=== PATIENT | female | born 1935 | race Caucasian/White ===

== ENCOUNTER 2018-02-28 21:53 | Observation (INO) | payer MEDICARE, OTHER ==
[2018-02-28 22:55] LABS: BASO % 0.4 % (0.0-2.0); EOS # 0.1 K/uL (0.0-0.7); EOS % 1.1 % (0.0-4.0); HEMOGLOBIN 13.8 g/dL (12.0-16.0); LYMPH # 1.9 K/uL (1.0-4.3); LYMPH % 25.5 % (20.0-40.0); MEAN CELL VOLUME 87.4 fl (81.0-99.0); MEAN CORPUSCULAR HEMOGLOBIN 29.9 pg (27.0-31.0); MEAN CORPUSCULAR HGB CONC 34.2 g/dL (33.0-37.0); MEAN PLATELET VOLUME 9.6 fl (7.2-11.7); MONO # 0.9 K/uL (0.0-0.8); MONO % 12.5 % (0.0-10.0); NEUT # 4.4 K/uL (1.8-7.0); NEUT % 60.5 % (50.0-75.0); NRBC % 0.1 % (0.0-0.0); RBC 4.64 Mil/uL (3.80-5.20); RED CELL DISTRIBUTION WIDTH 13.2 % (11.5-14.5); WHITE BLOOD COUNT 7.3 K/uL (4.8-10.8)
[2018-02-28 23:15] LABS: PROTHROMBIN TIME 9.5 Seconds (9.8-13.1)
[2018-02-28 23:16] LABS: INR 0.9 (0.9-1.2); PARTIAL THROMBOPLASTIN TIME 31.5 Seconds (25.6-37.1)
[2018-02-28 23:18] LABS: BLOOD UREA NITROGEN 20 mg/dl (7-17); CALCIUM 9.3 mg/dL (8.4-10.2); GFR AFRICAN-AMERICAN > 60; GFR NON-AFRICAN AMERICAN > 60; LIPASE 162 U/L (23-300)
[2018-02-28 23:33] LABS: B-TYPE NATRIURETIC PEPTIDE 122 pg/ml (0-900)
--- NOTE | 2018-03-01 00:07 | ED PDOC ---
HPI: Chest Pain Time Seen by Provider: 02/28/18 22:17 Chief Complaint (Nursing): Chest Pain Chief Complaint (Provider): Sternal chest pain, nausea, dizziness History Per: Patient History/Exam Limitations: no limitations Onset/Duration Of Symptoms: Days Current Symptoms Are (Timing): Still Present Additional Complaint(s): 82 yo female with HTN, CAD and high cholesterol presents with chest pain since yesterday. Pt reports pain as pressure. Pt also reports nausea the last 2 days and not feeling well. Pt has been dizzy for the last week which was worse today. Pt is having difficulty walking due to imbalance. No fever/chills. Pt denies SOB. Past Medical History Reviewed: Historical Data, Nursing Documentation, Vital Signs Vital Signs: Last Vital Signs Temp 97.8 F 02/28/18 23:34 Pulse 65 03/01/18 01:16 Resp 19 02/28/18 23:34 BP 159/77 H 03/01/18 01:16 Pulse Ox 99 03/01/18 00:23 - Medical History PMH: CHF (questionable, patient is unsure but provides that she is taking Furosemide), HTN, Hyperlipidemia Other PMH: Stents placed 1 year ago in [place] - Surgical History Surgical History: Appendectomy, Cholecystectomy - Family History Family History: States: Unknown Family Hx - Living Arrangements Living Arrangements: With Family - Social History Current smoker - smoking cessation education provided: No Alcohol: None Drugs: Denies - Home Medications Home Medications: Ambulatory Orders Medication Instructions Recorded Raloxifene [Evista] 60 mg PO DAILY 11/21/15 Aspirin [[place] Aspirin] 81 mg PO DAILY 03/01/18 Furosemide [Lasix] 40 mg PO DAILY 03/01/18 Losartan Potassium [Losartan 50 mg PO DAILY 03/01/18 Potassium] Metoprolol Tartrate [Lopressor] 50 mg PO BID 03/01/18 Patient Own Control [Patient Own 1 tab PO DAILY 03/01/18 Control] Pregabalin [Lyrica] 150 mg PO BID 03/01/18 Rosuvastatin Calcium [Crestor] 10 mg PO DAILY 03/01/18 - Allergies Allergies/Adverse Reactions: Allergies Allergy/AdvReac Type Severity Reaction Status Date / Time No Known Allergies Allergy Verified 11/21/15 10:34 Review of Systems ROS Statement: Except As Marked, All Systems Reviewed And Found Negative Constitutional: Negative for: Fever, Chills Cardiovascular: Positive for: Chest Pain (Pressure ) Respiratory: Negative for: Cough, Shortness of Breath Gastrointestinal: Positive for: Nausea Neurological: Positive for: Dizziness Physical Exam - Reviewed Nursing Documentation Reviewed: Yes Vital Signs Reviewed: Yes - Physical Exam Appears: Positive for: Well, Non-toxic, No Acute Distress Head Exam: Positive for: ATRAUMATIC, NORMAL INSPECTION, NORMOCEPHALIC Skin: Positive for: Normal Color, Warm, DRY Eye Exam: Positive for: Normal appearance ENT: Positive for: Normal ENT Inspection Neck: Positive for: Normal, Painless ROM Cardiovascular/Chest: Positive for: Regular Rate, Rhythm Respiratory: Positive for: Normal Breath Sounds. Negative for: Accessory Muscle Use, Respiratory Distress Gastrointestinal/Abdominal: Positive for: Normal Exam, Soft. Negative for: Tenderness Back: Positive for: Normal Inspection Extremity: Positive for: Normal ROM. Negative for: Swelling Neurologic/Psych: Positive for: Alert, Oriented - Laboratory Results Result Diagrams: 02/28/18 22:51 02/28/18 22:51 - ECG O2 Sat by Pulse Oximetry: 99 Medical Decision Making Medical Decision Making: Blood cultures drawn and patient given PO diflucan and IV rocephin. Cased discussed with Dr. Garcia for admission. Disposition - Clinical Impression Clinical Impression: Chest pain, UTI (urinary tract infection) - Patient ED Disposition Is Patient to be Admitted: No Counseled Patient/Family Regarding: Diagnosis, Need For Followup - Disposition Disposition: Routine/Home Disposition Time: 01:26 Condition: STABLE Forms: Dr. Scribbles (Tajik)
[2018-03-01 00:29] LABS: SQUAMOUS EPITHIAL 3 /hpf (0-5); URINE BACTERIA RARE (<OCC); URINE BILIRUBIN NEGATIVE (NEGATIVE); URINE BLOOD MODERATE (NEGATIVE); URINE CLARITY CLOUDY (Clear); URINE COLOR YELLOW (YELLOW); URINE GLUCOSE (UA) NEG (Normal); URINE LEUKOCYTE ESTERASE SMALL Leu/uL (Negative); URINE PROTEIN 30 mg/dL (NEGATIVE); URINE URIC ACID CRYSTALS OCC /hpf (<OCC); URINE UROBILINOGEN 0.2-1.0 mg/dL (0.2-1.0)
[2018-03-01] MEDS ORDERED: cefTRIAXone (Rocephin) 1 gm Inj ONE (00:45)
[2018-03-01] MEDS ORDERED: Fluconazole 150 MG TAB PO STA (01:24)
--- NOTE | 2018-03-01 01:56 | CP.PCM.HP ---
History of Present Illness - History of Present Illness History of Present Illness: Pulmonogist: Spencer Fabian MD Chief Complaint: Chest Pain/Dizziness The patient was seen and examined in the ED HPI: The hx was obtained from the patient's family and after review of the medical records. She is an 82 years old female with hx of HTN, HLD and CAD who was brought to the ED because of Two days of localized retro sternal chest pain at rest that is associated with nausea, dizziness, unsteady gait and not feeling good. The dizziness became worse today. No diaphoresis, fever nor chills. PMH: HTN; HLD: CAD s/p Stent placed in [place] PSH: Cholecystectomy; Appendectomy SH: No illegal drug use; NO Alcohol; Neve3r Smoked FH: States NO: known family hx Allergies; NKDA Medication: Rreviewed Present on Admission - Present on Admission Any Indicators Present on Admission: No History of DVT/PE: No History of Uncontrolled Diabetes: No Urinary Catheter: No Decubitus Ulcer Present: No Review of Systems - Constitutional Constitutional: Weakness. absent: Chills, Fever - EENT Eyes: Requires Corrective Lenses. absent: Blurred Vision, Diplopia, Floaters Ears: absent: Decreased Hearing, Tinnitus Nose/Mouth/Throat: absent: Epistaxis, Nasal Congestion - Cardiovascular Cardiovascular: Chest Pain, Lightheadedness - Respiratory Respiratory: Dyspnea. absent: Wheezing, Stridor, Chest Congestion - Gastrointestinal Gastrointestinal: Nausea. absent: Constipation, Diarrhea, Vomiting - Musculoskeletal Musculoskeletal: Arthralgias - Integumentary Integumentary: absent: Pruritus, Rash, Skin Ulcer, Sores, Striae, Swelling - Neurological Neurological: Confusion, Disequilibrium, Dizziness, Weakness - Psychiatric Psychiatric: absent: Anxiety, Depression, Panic Attacks - Endocrine Endocrine: absent: Palpitations, Polydipsia, Polyphagia, Polyuria - Hematologic/Lymphatic Hematologic: absent: Easy Bleeding, Easy Bruising Past Patient History - Infectious Disease Hx of Infectious Diseases: None - Past Medical History & Family History Past Medical History?: Yes - Past Social History Smoking Status: Never Smoked Chewing Tobacco Use: No Cigar Use: No Alcohol: None Drugs: Denies Home Situation {Lives}: With Family - CARDIAC Hx Congestive Heart Failure: Yes (questionable, patient is unsure but provides that she is taking Furosemide) Hx Hypercholesterolemia: Yes Hx Hypertension: Yes - PULMONARY Hx Respiratory Disorders: No - NEUROLOGICAL Hx Neurological Disorder: No - HEENT Hx HEENT Problems: No - RENAL Hx Chronic Kidney Disease: No - ENDOCRINE/METABOLIC Hx Endocrine Disorders: No - HEMATOLOGICAL/ONCOLOGICAL Hx Blood Disorders: No - INTEGUMENTARY Hx Dermatological Problems: No - MUSCULOSKELETAL/RHEUMATOLOGICAL Hx Musculoskeletal Disorders: No - GASTROINTESTINAL Hx Gastrointestinal Disorders: No - GENITOURINARY/GYNECOLOGICAL Hx Genitourinary Disorders: No - PSYCHIATRIC Hx Psychophysiologic Disorder: No Hx Substance Use: No - SURGICAL HISTORY Hx Appendectomy: Yes Hx Cholecystectomy: Yes - ANESTHESIA Hx Anesthesia: Yes Hx Anesthesia Reactions: No Hx Malignant Hyperthermia: No Meds Allergies/Adverse Reactions: Allergies Allergy/AdvReac Type Severity Reaction Status Date / Time No Known Allergies Allergy Verified 11/21/15 10:34 Physical Exam - Constitutional Appears: No Acute Distress - Head Exam Head Exam: ATRAUMATIC, NORMAL INSPECTION, NORMOCEPHALIC - Eye Exam Eye Exam: EOMI, Normal appearance Pupil Exam: NORMAL ACCOMODATION, PERRL - ENT Exam ENT Exam: Mucous Membranes Moist, Normal Exam, Normal External Ear Exam - Neck Exam Neck exam: Positive for: Full Rom, Normal Inspection. Negative for: Lymphadenopathy, Tenderness - Respiratory Exam Respiratory Exam: Clear to Auscultation Bilateral. absent: Rales, Rhonchi, Wheezes - Cardiovascular Exam Cardiovascular Exam: REGULAR RHYTHM, RRR, +S1, +S2. absent: Gallop, JVD - GI/Abdominal Exam GI & Abdominal Exam: Normal Bowel Sounds, Soft. absent: Mass, Organomegaly, Tenderness - Rectal Exam Rectal Exam: Deferred - Extremities Exam Extremities exam: Positive for: full ROM, normal inspection. Negative for: joint swelling, pedal edema - Back Exam Back exam: NORMAL INSPECTION. absent: CVA tenderness (L), CVA tenderness (R) - Neurological Exam Neurological exam: Alert, CN II-XII Intact, Oriented x3, Reflexes Normal - Psychiatric Exam Psychiatric exam: Normal Affect, Normal Mood - Skin Skin Exam: Dry, Intact, Normal Color, Warm Results - Vital Signs Recent Vital Signs: Last Vital Signs Temp 97.8 F 02/28/18 23:34 Pulse 65 03/01/18 01:16 Resp 19 02/28/18 23:34 BP 159/77 H 03/01/18 01:16 Pulse Ox 99 03/01/18 01:26 - Labs Result Diagrams: 02/28/18 22:51 02/28/18 22:51 Labs: Laboratory Results - last 24 hr 02/28/18 02/28/18 02/28/18 22:51 22:51 22:51 WBC 7.3 RBC 4.64 Hgb 13.8 Hct 40.5 MCV 87.4 MCH 29.9 MCHC 34.2 RDW 13.2 Plt Count 195 MPV 9.6 Neut % (Auto) 60.5 Lymph % (Auto) 25.5 [place] % (Auto) 12.5 H Eos % (Auto) 1.1 Baso % (Auto) 0.4 Neut # (Auto) 4.4 Lymph # (Auto) 1.9 [place] # (Auto) 0.9 H Eos # (Auto) 0.1 Baso # (Auto) 0.0 PT 9.5 L INR 0.9 APTT 31.5 Sodium 143 Potassium 3.3 L Chloride 104 Carbon Dioxide 26 Anion Gap 16 BUN 20 H Creatinine 0.7 Est GFR ( Amer) > 60 Est GFR (Non-Af Amer) > 60 POC Glucose (mg/dL) Random Glucose 130 H Lactic Acid Calcium 9.3 Troponin I < 0.0120 NT-Pro-B Natriuret Pep 122 Lipase 162 Urine Color Urine Clarity Urine pH Ur Specific [place] Urine Protein Urine Glucose (UA) Urine Ketones Urine Blood Urine Nitrate Urine Bilirubin Urine Urobilinogen Ur Leukocyte Esterase Urine RBC (Auto) Urine Microscopic WBC Ur Squamous Epith Cells Uric Acid Crystals Urine Bacteria Urine Yeast (Budding) 02/28/18 03/01/18 03/01/18 23:08 00:04 00:27 WBC RBC Hgb Hct MCV MCH MCHC RDW Plt Count MPV Neut % (Auto) Lymph % (Auto) [place] % (Auto) Eos % (Auto) Baso % (Auto) Neut # (Auto) Lymph # (Auto) [place] # (Auto) Eos # (Auto) Baso # (Auto) PT INR APTT Sodium Potassium Chloride Carbon Dioxide Anion Gap BUN Creatinine Est GFR ( Amer) Est GFR (Non-Af Amer) POC Glucose (mg/dL) 100 Random Glucose Lactic Acid 2.1 Calcium Troponin I NT-Pro-B Natriuret Pep Lipase Urine Color Yellow Urine Clarity Cloudy Urine pH 5.0 Ur Specific [place] 1.021 Urine Protein 30 Urine Glucose (UA) Neg Urine Ketones Negative Urine Blood Moderate Urine Nitrate Positive H Urine Bilirubin Negative Urine Urobilinogen 0.2-1.0 Ur Leukocyte Esterase Small Urine RBC (Auto) 194 H Urine Microscopic WBC 42 H Ur Squamous Epith Cells 3 Uric Acid Crystals Occ H Urine Bacteria Rare Urine Yeast (Budding) Mod H - EKG Data EKG comments: NSR 69/min with First Degree AV block which was present since 04/2016 - Imaging and Cardiology CT scan - head Status: Image reviewed by me, Report reviewed by me Additional comment: EXAM: CT Head Without Intravenous Contrast FINDINGS: Brain: Atrophy. Mild periventricular white matter hypoattenuation most consistent with chronic ischemic small vessel changes. Vascular calcification. No hemorrhage. No edema. Ventricles: No hydrocephalus. Bones/joints: Skull is intact. Soft tissues: No acute abnormality as visualized. Sinuses: Mild paranasal sinus mucosal thickening, most notable in the right sphenoid sinus. Mastoid air cells: No mastoid effusion. IMPRESSION: No CT evidence of acute intracranial abnormality. Chest x-ray Status: Image reviewed by me Additional comment: Increased bronchovascular markings Assessment & Plan - Assessment and Plan (Free Text) Assessment: #. Chest pain #. UTI #. Fungemia #. HTN #. Hypokalemia Plan: 82 years old female with hx of HTN, HLD and CAD who was brought to the ED because of Two days of localized retro sternal chest pain at rest that is associated with nausea, dizziness, unsteady gait and not feeling good. The dizziness became worse today. No diaphoresis, fever nor chills. #. Chest pain probably musculo skeletal, r/o ACS - Consult Dr sarah cardiology - serial EKG - Serial Troponin - crestor/ASA #. UTI - Follow Urine Culture - Follow blood culture - Ceftriaxone #. Fungemia - Fluconazole #. HTN - Metoprolol - Losartan #. Hypokalemia - replaced with Potassium chloride - Follow electrolytes #. DVT prophylaxis with Lovenox #. Code Status: Full - Date & Time Date: 03/01/18 Time: 01:55
[2018-03-01 03:07] VITALS: RESP 18
[2018-03-01] MEDS ORDERED: Potassium Chloride 20 mEq ER Tab PO ONE (03:39)
[2018-03-01 07:30] LABS: BLOOD UREA NITROGEN 18 mg/dl (7-17); CALCIUM 9.3 mg/dL (8.4-10.2); GFR AFRICAN-AMERICAN > 60; GFR NON-AFRICAN AMERICAN > 60
[2018-03-01] MEDS ORDERED: Enoxaparin 40 mg Syringe SC SCH (09:00)
--- NOTE | 2018-03-01 09:07 | RAD ---
HISTORY: Chest pressure COMPARISON: Chest radiograph dated 03/13/2017. FINDINGS: LUNGS: Chronic prominence of the bilateral interstitial markings. No focal consolidation. PLEURA: Elevation of the right hemidiaphragm. No significant pleural effusion identified, no pneumothorax apparent. CARDIOVASCULAR: Atherosclerotic aortic calcifications. Cardiomediastinal silhouette stably prominent. OSSEOUS STRUCTURES: Old left-sided rib fractures redemonstrated. Unchanged. VISUALIZED UPPER ABDOMEN: Normal. OTHER FINDINGS: None. IMPRESSION: No active disease.
--- NOTE | 2018-03-01 09:26 | CT ---
PROCEDURE: CT HEAD WITHOUT CONTRAST. HISTORY: dizziness, nuasea COMPARISON: CT head dated 07/15/2010. TECHNIQUE: Axial computed tomography images were obtained through the head/brain without intravenous contrast. Radiation dose: Total exam DLP = 805 mGy-cm. This CT exam was performed using one or more of the following dose reduction techniques: Automated exposure control, adjustment of the mA and/or kV according to patient size, and/or use of iterative reconstruction technique. FINDINGS: HEMORRHAGE: No intracranial hemorrhage. BRAIN: No mass effect or edema. Atrophy. Chronic microvascular ischemic changes. 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 VENTRICLES: Unremarkable. No hydrocephalus. CALVARIUM: Unremarkable. PARANASAL SINUSES: Trace right sphenoid and bilateral maxillary sinus mucosal thickening. MASTOID AIR CELLS: Unremarkable as visualized. No inflammatory changes. OTHER FINDINGS: None. IMPRESSION: No acute intracranial pathology. Trace sinus disease.
[2018-03-01 11:56] VITALS: BP 147/75; PULSE 59; TEMP 97.8; O2SAT 95
--- NOTE | 2018-03-01 12:10 | CP.PCM.CON ---
History of Present Illness - History of Present Illness History of Present Illness: 82 years old female with hx of HTN, HLD and CAD who was brought to the ED because of Two days Hx of dizziness / no relation to exertion worse with head movement Pt is well known to me the dizziness is a chronic problem that goes back years PMH: HTN; HLD: CAD s/p Stent placed in [place] PSH: Cholecystectomy; Appendectomy EKG: NSR Troponin: neg Past Patient History - Infectious Disease Hx of Infectious Diseases: None - Past Medical History & Family History Past Medical History?: Yes - Past Social History Smoking Status: Never Smoked Chewing Tobacco Use: No Cigar Use: No Alcohol: None Drugs: Denies Home Situation {Lives}: With Family - CARDIAC Hx Congestive Heart Failure: Yes (questionable, patient is unsure but provides that she is taking Furosemide) Hx Hypercholesterolemia: Yes Hx Hypertension: Yes - PULMONARY Hx Respiratory Disorders: No - NEUROLOGICAL Hx Neurological Disorder: No Hx Dizziness: Yes - HEENT Hx HEENT Problems: No - RENAL Hx Chronic Kidney Disease: No - ENDOCRINE/METABOLIC Hx Endocrine Disorders: No - HEMATOLOGICAL/ONCOLOGICAL Hx Blood Disorders: No - INTEGUMENTARY Hx Dermatological Problems: No - MUSCULOSKELETAL/RHEUMATOLOGICAL Hx Musculoskeletal Disorders: No - GASTROINTESTINAL Hx Gastrointestinal Disorders: No - GENITOURINARY/GYNECOLOGICAL Hx Genitourinary Disorders: No - PSYCHIATRIC Hx Psychophysiologic Disorder: No Hx Substance Use: No - SURGICAL HISTORY Hx Appendectomy: Yes Hx Cholecystectomy: Yes - ANESTHESIA Hx Anesthesia: Yes Hx Anesthesia Reactions: No Hx Malignant Hyperthermia: No Meds Home Medications: Home Medication List Medication Instructions Recorded Confirmed Type Ciprofloxacin [Cipro] 500 mg PO DAILY #5 tab 03/01/18 Rx Fluconazole [Diflucan] 100 mg PO DAILY #7 tab 03/01/18 Rx Meclizine [Antivert] 12.5 mg PO Q8 PRN #20 tab 03/01/18 Rx Allergies/Adverse Reactions: Allergies Allergy/AdvReac Type Severity Reaction Status Date / Time No Known Allergies Allergy Verified 11/21/15 10:34 - Medications Medications: Current Medications Aspirin (Aspirin Chewable) 81 mg PO DAILY [facility] Last Admin: 03/01/18 09:52 Dose: 81 mg Atorvastatin Calcium (Lipitor) 20 mg PO DAILY [facility] Last Admin: 03/01/18 09:53 Dose: 20 mg Enoxaparin Sodium (Lovenox) 40 mg SC DAILY [facility] PRN Reason: Protocol Last Admin: 03/01/18 09:54 Dose: 40 mg Fluconazole (Diflucan) 200 mg PO DAILY [facility] PRN Reason: Protocol Last Admin: 03/01/18 09:55 Dose: Not Given Furosemide (Lasix) 40 mg PO DAILY [facility] Last Admin: 03/01/18 09:53 Dose: 40 mg Home Med (Raloxifene [Evista]) 60 mg PO DAILY [facility] Ceftriaxone Sodium 1 gm/ (Sodium Chloride) 100 mls @ 100 mls/hr IVPB DAILY [facility] PRN Reason: Protocol Last Admin: 03/01/18 09:55 Dose: Not Given Losartan Potassium (Cozaar) 50 mg PO DAILY [facility] Last Admin: 03/01/18 09:52 Dose: 50 mg Meclizine HCl (Antivert) 12.5 mg PO BID PRN PRN Reason: Dizziness Metoprolol Tartrate (Lopressor) 50 mg PO BID [facility] Last Admin: 03/01/18 09:53 Dose: 50 mg Pregabalin (Lyrica) 150 mg PO BID [facility] Last Admin: 03/01/18 09:58 Dose: 150 mg Physical Exam - Head Exam Head Exam: ATRAUMATIC - Eye Exam Eye Exam: Normal appearance - ENT Exam ENT Exam: Normal Exam - Neck Exam Neck exam: Positive for: Normal Inspection - Respiratory Exam Respiratory Exam: NORMAL BREATHING PATTERN - Cardiovascular Exam Cardiovascular Exam: REGULAR RHYTHM Results - Vital Signs Recent Vital Signs: Last Vital Signs Temp 97.6 F 03/01/18 08:43 Pulse 72 03/01/18 09:53 Resp 18 03/01/18 08:43 BP 165/91 H 03/01/18 09:53 Pulse Ox 94 L 03/01/18 08:43 - Labs Result Diagrams: 02/28/18 22:51 03/01/18 06:00 Labs: Laboratory Results - last 24 hr 02/28/18 02/28/18 02/28/18 22:51 22:51 22:51 WBC 7.3 RBC 4.64 Hgb 13.8 Hct 40.5 MCV 87.4 MCH 29.9 MCHC 34.2 RDW 13.2 Plt Count 195 MPV 9.6 Neut % (Auto) 60.5 Lymph % (Auto) 25.5 [place] % (Auto) 12.5 H Eos % (Auto) 1.1 Baso % (Auto) 0.4 Neut # (Auto) 4.4 Lymph # (Auto) 1.9 [place] # (Auto) 0.9 H Eos # (Auto) 0.1 Baso # (Auto) 0.0 PT 9.5 L INR 0.9 APTT 31.5 Sodium 143 Potassium 3.3 L Chloride 104 Carbon Dioxide 26 Anion Gap 16 BUN 20 H Creatinine 0.7 Est GFR ( Amer) > 60 Est GFR (Non-Af Amer) > 60 POC Glucose (mg/dL) Random Glucose 130 H Lactic Acid Calcium 9.3 Troponin I < 0.0120 NT-Pro-B Natriuret Pep 122 Lipase 162 Urine Color Urine Clarity Urine pH Ur Specific [place] Urine Protein Urine Glucose (UA) Urine Ketones Urine Blood Urine Nitrate Urine Bilirubin Urine Urobilinogen Ur Leukocyte Esterase Urine RBC (Auto) Urine Microscopic WBC Ur Squamous Epith Cells Uric Acid Crystals Urine Bacteria Urine Yeast (Budding) 02/28/18 03/01/18 03/01/18 23:08 00:04 00:27 WBC RBC Hgb Hct MCV MCH MCHC RDW Plt Count MPV Neut % (Auto) Lymph % (Auto) [place] % (Auto) Eos % (Auto) Baso % (Auto) Neut # (Auto) Lymph # (Auto) [place] # (Auto) Eos # (Auto) Baso # (Auto) PT INR APTT Sodium Potassium Chloride Carbon Dioxide Anion Gap BUN Creatinine Est GFR ( Amer) Est GFR (Non-Af Amer) POC Glucose (mg/dL) 100 Random Glucose Lactic Acid 2.1 Calcium Troponin I NT-Pro-B Natriuret Pep Lipase Urine Color Yellow Urine Clarity Cloudy Urine pH 5.0 Ur Specific [place] 1.021 Urine Protein 30 Urine Glucose (UA) Neg Urine Ketones Negative Urine Blood Moderate Urine Nitrate Positive H Urine Bilirubin Negative Urine Urobilinogen 0.2-1.0 Ur Leukocyte Esterase Small Urine RBC (Auto) 194 H Urine Microscopic WBC 42 H Ur Squamous Epith Cells 3 Uric Acid Crystals Occ H Urine Bacteria Rare Urine Yeast (Budding) Mod H 03/01/18 06:00 WBC RBC Hgb Hct MCV MCH MCHC RDW Plt Count MPV Neut % (Auto) Lymph % (Auto) [place] % (Auto) Eos % (Auto) Baso % (Auto) Neut # (Auto) Lymph # (Auto) [place] # (Auto) Eos # (Auto) Baso # (Auto) PT INR APTT Sodium 143 Potassium 3.6 Chloride 105 Carbon Dioxide 28 Anion Gap 14 BUN 18 H Creatinine 0.6 L Est GFR ( Amer) > 60 Est GFR (Non-Af Amer) > 60 POC Glucose (mg/dL) Random Glucose 96 Lactic Acid Calcium 9.3 Troponin I < 0.0120 NT-Pro-B Natriuret Pep Lipase Urine Color Urine Clarity Urine pH Ur Specific [place] Urine Protein Urine Glucose (UA) Urine Ketones Urine Blood Urine Nitrate Urine Bilirubin Urine Urobilinogen Ur Leukocyte Esterase Urine RBC (Auto) Urine Microscopic WBC Ur Squamous Epith Cells Uric Acid Crystals Urine Bacteria Urine Yeast (Budding) Assessment & Plan (1) Postural dizziness Assessment and Plan: Doubt this is cardiac in origin Status: Acute
--- NOTE | 2018-03-01 12:42 | CP.PCM.DIS ---
Provider - Provider Date of Admission: 03/01/18 01:04 Attending physician: Julio Garcia Primary care physician: Dr Fabian Consults: cardiology consult Time Spent in preparation of Discharge (in minutes): 15 Hospital Course - Lab Results Lab Results: Most Recent Lab Values WBC 7.3 K/uL (4.8-10.8) 02/28/18 22:51 RBC 4.64 Mil/uL (3.80-5.20) 02/28/18 22:51 Hgb 13.8 g/dL (12.0-16.0) 02/28/18 22:51 Hct 40.5 % (34.0-47.0) 02/28/18 22:51 MCV 87.4 fl (81.0-99.0) 02/28/18 22:51 MCH 29.9 pg (27.0-31.0) 02/28/18 22:51 MCHC 34.2 g/dL (33.0-37.0) 02/28/18 22:51 RDW 13.2 % (11.5-14.5) 02/28/18 22:51 Plt Count 195 K/uL (130-400) 02/28/18 22:51 MPV 9.6 fl (7.2-11.7) 02/28/18 22:51 Neut % (Auto) 60.5 % (50.0-75.0) 02/28/18 22:51 Lymph % (Auto) 25.5 % (20.0-40.0) 02/28/18 22:51 [place] % (Auto) 12.5 % (0.0-10.0) H 02/28/18 22:51 Eos % (Auto) 1.1 % (0.0-4.0) 02/28/18 22:51 Baso % (Auto) 0.4 % (0.0-2.0) 02/28/18 22:51 Neut # (Auto) 4.4 K/uL (1.8-7.0) 02/28/18 22:51 Lymph # (Auto) 1.9 K/uL (1.0-4.3) 02/28/18 22:51 Sabine # (Auto) 0.9 K/uL (0.0-0.8) H 06/15/18 22:51 Eos # (Auto) 0.1 K/uL (0.0-0.7) 02/28/18 22:51 Baso # (Auto) 0.0 K/uL (0.0-0.2) 02/28/18 22:51 PT 9.5 Seconds (9.8-13.1) L 02/28/18 22:51 INR 0.9 (0.9-1.2) 02/28/18 22:51 APTT 31.5 Seconds (25.6-37.1) 02/28/18 22:51 Sodium 143 mmol/l (132-148) 03/01/18 06:00 Potassium 3.6 MMOL/L (3.6-5.0) 03/01/18 06:00 Chloride 105 mmol/L (98-107) 03/01/18 06:00 Carbon Dioxide 28 mmol/L (22-30) 03/01/18 06:00 Anion Gap 14 (10-20) 03/01/18 06:00 BUN 18 mg/dl (7-17) H 03/01/18 06:00 Creatinine 0.6 mg/dl (0.7-1.2) L 03/01/18 06:00 Est GFR ( Amer) > 60 03/01/18 06:00 Est GFR (Non-Af Amer) > 60 03/01/18 06:00 POC Glucose (mg/dL) 100 mg/dL (65-110) 03/01/18 00:27 Random Glucose 96 mg/dL (65-105) 03/01/18 06:00 Lactic Acid 2.1 MMOL/L (0.7-2.1) 02/28/18 23:08 Calcium 9.3 mg/dL (8.4-10.2) 03/01/18 06:00 Troponin I < 0.0120 ng/mL (0.00-0.120) 03/01/18 06:00 NT-Pro-B Natriuret Pep 122 pg/ml (0-900) 02/28/18 22:51 Lipase 162 U/L (23-300) 02/28/18 22:51 Urine Color Yellow (YELLOW) 03/01/18 00:04 Urine Clarity Cloudy (Clear) 03/01/18 00:04 Urine pH 5.0 (5.0-8.0) 03/01/18 00:04 Ur Specific [place] 1.021 (1.003-1.030) 03/01/18 00:04 Urine Protein 30 mg/dL (NEGATIVE) 03/01/18 00:04 Urine Glucose (UA) Neg mg/dL (Normal) 03/01/18 00:04 Urine Ketones Negative mg/dL (NEGATIVE) 03/01/18 00:04 Urine Blood Moderate (NEGATIVE) 03/01/18 00:04 Urine Nitrate Positive (NEGATIVE) H 03/01/18 00:04 Urine Bilirubin Negative (NEGATIVE) 03/01/18 00:04 Urine Urobilinogen 0.2-1.0 mg/dL (0.2-1.0) 03/01/18 00:04 Ur Leukocyte Esterase [place]/uL (Negative) 03/01/18 00:04 Urine RBC (Auto) 194 /hpf (0-3) H 03/01/18 00:04 Urine Microscopic WBC 42 /hpf (0-5) H 03/01/18 00:04 Ur Squamous Epith Cells 3 /hpf (0-5) 03/01/18 00:04 Uric Acid Crystals Occ /hpf (<OCC) H 03/01/18 00:04 Urine Bacteria Rare (<OCC) 03/01/18 00:04 Urine Yeast (Budding) Mod /hpf (NEGATIVE) H 03/01/18 00:04 - Hospital Course Hospital Course: 82 years old female with hx of HTN, HLD and CAD with stents was brought to the ED because of Two days of vertigo and epigastric discomfort ,like feeling of empty stomach. Patient has had this complained for almost 2 months now. The dizziness became worse today so her son decided to bring her to ER . Ct head showed no acute pathology and work up showed UTI and funguria. She was placed under observation in telemetry . Troponins were cycled and her cattle knocker Dr. Birch was consulted . She received Meclizine for her vertigo with resolution of her symptoms.No diaphoresis, fever nor chills.At present with steady gait ambulating with no assistance. As per her cattle knocker patient has had vertigo for a long time and this is chronic ACs ruled out patient at present is hempodfynamically stable As per son patient usually tends to get up fast and he thinks that her symptoms are related with sudden positional change. Counselled patient to a more slow slow positional changes especiallty fro, lying down to sitting or standing up to avoid dizziness or sudden droop in BP Will discharge patient home on Meclizine PO PRN for vertigo Advise to follow up with PMD Dr. Fabian and her cattle knocker Dr. Birch Will continue treatment for her UTI and Funguria with 5 more days of Cipro Po and Fluconazole PO 1. Chest pain probably musculo skeletal, ACS ruled out Her cattle knocker consulted Dr. Birch continue BP control ASa, Crestor 2.Vertigo Most likely benign positional vertigo chronic CT head showed no acute pathology resolved with meclizine will d/c on Meclizine PRN 3. UTI d/c on Cipro PO for 5 days 4. Funguria started Fluconazole po for 5 days 5 HTN labile continue home meds Metoprolol and losartan 6. Hypokalemia replaced with Potassium chloride 7. CAD with stents continue ASa, statin, metoprolol, ASa, losartan Discharge Exam - Head Exam Head Exam: ATRAUMATIC, NORMAL INSPECTION, NORMOCEPHALIC - Eye Exam Eye Exam: EOMI, Normal appearance, PERRL Pupil Exam: NORMAL ACCOMODATION - ENT Exam ENT Exam: Mucous Membranes Moist, Normal Exam - Neck Exam Neck exam: Full Rom, Normal Inspection - Respiratory Exam Respiratory Exam: Clear to PA & Lateral, NORMAL BREATHING PATTERN. absent: Rales, Rhonchi, Wheezes - Cardiovascular Exam Cardiovascular Exam: REGULAR RHYTHM, RRR, +S1, +S2. absent: JVD - GI/Abdominal Exam GI & Abdominal Exam: Normal Bowel Sounds, Soft. absent: Distended, Guarding, Rebound, Tenderness - Rectal Exam Rectal Exam: Deferred - Extremities Exam Extremities exam: normal capillary refill, normal inspection, pedal pulses present - Back Exam Back exam: NORMAL INSPECTION - Neurological Exam Neurological exam: Alert, CN II-XII Intact, Oriented x3 - Psychiatric Exam Psychiatric exam: Normal Affect, Normal Mood - Skin Skin Exam: Dry, Intact, Normal Color, Warm Discharge Plan - Discharge Medications Prescriptions: Ciprofloxacin [Cipro] 500 mg PO DAILY #5 tab Fluconazole [Diflucan] 100 mg PO DAILY #7 tab Meclizine [Antivert] 12.5 mg PO Q8 PRN #20 tab PRN Reason: vertigo - Follow Up Plan Condition: STABLE Disposition: HOME/ ROUTINE Patient education suggested?: Yes Instructions: Vertigo (a Type of Dizziness) (DC), Vestibular Exercises, Urinary Tract Infection, Adult (DC) Referrals: Spencer Fabian MD [Family Provider] - Buddy Birch MD [Staff Provider] -
--- NOTE | 2018-03-03 11:43 | CARD ---
APPROVED REPORT EKG Measurement Heart [id number] <Conclusion> Sinus rhythm with 1st degree AV block Left axis deviation Abnormal ECG
== END 2018-03-01 13:30 | disposition home or self-care (01) ==
LOC: H.ER 21:53 → H.ERHOLD 03-01 01:04 → H.TEL 03-01 02:52
PROVIDERS: ADMIT Internal Medicine; ATTEND Internal Medicine
DX: R07.89 Other chest pain (principal); N39.0 Urinary tract infection, site not specified; B96.20 Unspecified Escherichia coli [E. coli] as the cause of diseases classified elsewhere; H81.10 Benign paroxysmal vertigo, unspecified ear; E87.6 Hypokalemia; I10 Essential (primary) hypertension; I25.10 Atherosclerotic heart disease of native coronary artery without angina pectoris; E78.5 Hyperlipidemia, unspecified; E78.00 Pure hypercholesterolemia, unspecified; B49 Unspecified mycosis; Z95.5 Presence of coronary angioplasty implant and graft; Z79.82 Long term (current) use of aspirin; R11.0 Nausea
CPT/HCPCS: 70450; 71045; 80048; 81003; 82948; 83605; 83690; 83880; 84484; 85025; 85610; 85730; 87040; 87086; 96365; 99285; G0378; J0696; J1650

== ENCOUNTER 2018-03-14 00:22 | Emergency (ER) | payer MEDICARE, OTHER ==
[2018-03-14 00:35] VITALS: O2SAT 98
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
[2018-03-14 05:09] VITALS: BP 177/85; PULSE 62; RESP 18; TEMP 97.6
== END 2018-03-14 03:10 | disposition home or self-care (01) ==
LOC: H.ER 00:22
DX: M54.31 Sciatica, right side (principal); E78.00 Pure hypercholesterolemia, unspecified; I11.0 Hypertensive heart disease with heart failure; I50.9 Heart failure, unspecified; Z79.82 Long term (current) use of aspirin
CPT/HCPCS: 96374; 99282; J1885

== ENCOUNTER 2018-05-25 03:45 | Emergency (ER) | payer MEDICARE, OTHER ==
[2018-05-25 04:25] VITALS: RESP 16
[2018-05-25] MEDS ORDERED: Lidocaine 5% Patch TD STA (04:57)
[2018-05-25] MEDS ORDERED: Lidocaine 5% Patch TD ONE (05:01)
--- NOTE | 2018-05-25 05:17 | ED PDOC ---
HPI: Back Time Seen by Provider: 05/25/18 04:43 Chief Complaint (Nursing): Back Pain Chief Complaint (Provider): Back Pain History Per: Patient History/Exam Limitations: no limitations Onset/Duration Of Symptoms: Days Current Symptoms Are (Timing): Still Present Quality Of Discomfort: "Pain" Exacerbating Factor(s): Movement Additional Complaint(s): 83 year old female presents to the ED with sonLucio for an evaluation of back pain onset 6 days ago. Patient states she tripped on the rug on the floor causing her to fall towards her right side but she was able to brace herself with her arms so she did not fall or sustain blunt trauma. Patient reports since then, she has developed right sided back pain. State the pain alleviates when standing up and becomes worse when lying supine. She takes Tylenol without any pain relief. Denies abdominal pain, dysuria, incontinence, hematuria, or radiation of pain. PMD: Spencer Fabian Past Medical History Reviewed: Historical Data, Nursing Documentation, Vital Signs Vital Signs: Last Vital Signs Temp 97.9 F 05/25/18 04:23 Pulse 66 05/25/18 04:23 Resp 16 05/25/18 04:23 BP 156/91 H 05/25/18 04:23 Pulse Ox 98 05/25/18 04:23 - Medical History PMH: CHF (questionable, patient is unsure but provides that she is taking Furosemide), HTN, Hypercholesterolemia, Hyperlipidemia Denies: HIV, Chronic Kidney Disease - Surgical History Surgical History: Appendectomy, Cholecystectomy - Family History Family History: States: Unknown Family Hx - Home Medications Home Medications: Ambulatory Orders Medication Instructions Recorded Raloxifene [Evista] 60 mg PO DAILY 11/21/15 Aspirin [[place] Aspirin] 81 mg PO DAILY 03/01/18 Ciprofloxacin [Cipro] 500 mg PO DAILY #5 tab 03/01/18 Fluconazole [Diflucan] 100 mg PO DAILY #7 tab 03/01/18 Furosemide [Lasix] 40 mg PO DAILY 03/01/18 Losartan Potassium [Losartan 50 mg PO DAILY 03/01/18 Potassium] Meclizine [Antivert] 12.5 mg PO Q8 PRN #20 tab 03/01/18 Metoprolol Tartrate [Lopressor] 50 mg PO BID 03/01/18 Patient Own Control [Patient Own 1 tab PO DAILY 03/01/18 Control] Pregabalin [Lyrica] 150 mg PO BID 03/01/18 Rosuvastatin Calcium [Crestor] 10 mg PO DAILY 03/01/18 Cyclobenzaprine [Flexeril] 5 mg PO TID PRN #10 tab 05/25/18 Lidocaine 5% [Lidoderm] 1 ea TD DAILY PRN #10 patch 05/25/18 - Allergies Allergies/Adverse Reactions: Allergies Allergy/AdvReac Type Severity Reaction Status Date / Time No Known Allergies Allergy Verified 11/21/15 10:34 Review of Systems ROS Statement: Except As Marked, All Systems Reviewed And Found Negative Gastrointestinal: Negative for: Abdominal Pain Genitourinary Female: Negative for: Dysuria, Frequency, Incontinence, Hematuria Musculoskeletal: Positive for: Back Pain Physical Exam - Reviewed Nursing Documentation Reviewed: Yes Vital Signs Reviewed: Yes - Physical Exam Appears: Positive for: Well, Non-toxic, No Acute Distress Head Exam: Positive for: ATRAUMATIC, NORMAL INSPECTION, NORMOCEPHALIC Skin: Positive for: Normal Color, Warm, Dry. Negative for: Rash Cardiovascular/Chest: Positive for: Regular Rate, Rhythm. Negative for: Murmur Respiratory: Positive for: Normal Breath Sounds. Negative for: Decreased Breath Sounds, Wheezing, Respiratory Distress Gastrointestinal/Abdominal: Positive for: Normal Exam, Soft. Negative for: Tenderness, Guarding, Rebound Back: Positive for: Normal Inspection, Muscle Spasm (right side paralumbar). Negative for: L CVA Tenderness, R CVA Tenderness Neurologic/Psych: Positive for: Alert, Oriented (x3). Negative for: Motor/ Sensory Deficits - ECG O2 Sat by Pulse Oximetry: 98 (RA) Pulse Ox Interpretation: Normal Medical Decision Making Medical Decision Making: Time: 250 Initial Plan: --ED Urine Dipstick --Flexeril 5mg --Lidoderm --Tylenol 975mg --LS Spine [RAD] --Reevaluation Scribe Attestation: Documented by Shawn Fall, acting as a scribe for Jeet Wolf PA-C. Provider Scribe Attestation: All medical record entries made by the Scribe were at my direction and personally dictated by me. I have reviewed the chart and agree that the record accurately reflects my personal performance of the history, physical exam, medical decision making, and the department course for this patient. I have also personally directed, reviewed, and agree with the discharge instructions and disposition. Disposition - Clinical Impression Clinical Impression: Back strain, Compression fracture - Patient ED Disposition Is Patient to be Admitted: Transfer of Care - Disposition Referrals: [facility] [Outside] Javan Dave MD [Staff Provider] - Spencer Fabian MD [Family Provider] - Disposition: Transfer of Care Disposition Time: 06:00 (Dr. Salvador continued care pending x-ray) Condition: STABLE Additional Instructions: FOLLOW UP WITH DR. FABIAN YOU MAY NEED FURTHER IMAGING OF YOUR LOWER BACK follow up with Dr Dave if pain persists in one week return to the ED with any worsening or concerning symptoms ANTONIO OLIVEIRA, thank you for letting us take care of you today. Your provider was Ne Carrillo MD and you were treated for BACK INJURY. The emergency medical care you received today was directed at your acute symptoms. If you were prescribed any medication, please fill it and take as directed. It may take several days for your symptoms to resolve. Return to the Emergency Department if your symptoms worsen, do not improve, or if you have any other problems. Please contact your doctor or call one of the physicians/clinics you have been referred to that are listed on the Patient Visit Information form that is included in your discharge packet. Bring any paperwork you were given at discharge with you along with any medications you are taking to your follow up visit. Our treatment cannot replace ongoing medical care by a primary care provider outside of the emergency department. Thank you for allowing the [facility] team to be part of your care today. If you had an X-Ray or CT scan: A Radiologist will review the ED reading if any change in treatment is needed we will contact you. If you had a blood, urine, or wound culture: It will take several days for the results, if any change in treatment is needed we will contact you. If you had an STI test: It will take 48 hours for the results. Please call after 1 week if you have not heard back. Prescriptions: Cyclobenzaprine [Flexeril] 5 mg PO TID PRN #10 tab PRN Reason: Muscle Spasm Lidocaine 5% [Lidoderm] 1 ea TD DAILY PRN #10 patch PRN Reason: Pain Instructions: Low Back Pain (DC), Vertebral Compression Fracture (DC) Forms: [employer] (Bengali) Print Language: CYPRIOT
[2018-05-25 05:32] LABS: SQUAMOUS EPITHIAL 1 /hpf (0-5); URINE BACTERIA MOD (<OCC); URINE BILIRUBIN NEGATIVE (NEGATIVE); URINE BLOOD NEGATIVE (NEGATIVE); URINE CLARITY SLIGHTY-CLOUDY (Clear); URINE COLOR YELLOW (YELLOW); URINE GLUCOSE (UA) NEG (Normal); URINE LEUKOCYTE ESTERASE TRACE Leu/uL (Negative); URINE PROTEIN NEGATIVE (NEGATIVE); URINE UROBILINOGEN 0.2-1.0 mg/dL (0.2-1.0)
--- NOTE | 2018-05-25 06:32 | ED PDOC ---
- ECG O2 Sat by Pulse Oximetry: 98 (RA) Pulse Ox Interpretation: Normal Medical Decision Making Medical Decision Making: Time: 06 Patient signed-out to me by Jeet Wolf PA-C pending x-ray. Time: 616 EXAM:XR Lumbar Spine, 2 or 3 Views EXAM DATE/TIME: 05/25/2018 4:57 AM CLINICAL HISTORY: 83 years old, female; Injury or trauma; Fall; Initial encounter; Blunt trauma ( contusions or hematomas) TECHNIQUE: XR of the lumbar spine, 2 or 3 views. COMPARISON: No relevant prior studies available. FINDINGS: Vertebrae: There is diffuse osteopenia. There are skeletal degenerative changes. There is a moderate compression fracture of the T12 vertebral body, age uncertain. There is mild scoliosis of the lumbar spine. Soft tissues: There are surgical aleida in the right upper abdomen, suggesting prior cholecystectomy. There is calcification of the arteries. IMPRESSION: There is a moderate compression fracture of the T12 vertebral body, age uncertain. Time: 07 [address] Dave ortho spine to discuss regarding patient. Dr montague called back on his behalf ,states nothing to be done surgically based on the images Pt can be dc home as per him If pt still has pain, can follow up with their group within one week pt aware of plan and agreeable Scribe Attestation: Documented by Shawn Fall, acting as a scribe for Ne Carrillo MD. Provider Scribe Attestation: All medical record entries made by the Scribe were at my direction and personally dictated by me. I have reviewed the chart and agree that the record accurately reflects my personal performance of the history, physical exam, medical decision making, and the department course for this patient. I have also personally directed, reviewed, and agree with the discharge instructions and disposition. Disposition - Clinical Impression Clinical Impression: Back strain, Compression fracture - POA Present On Arrival: None - Disposition Referrals: [facility] [Outside] Spencer Fabian MD [Family Provider] - Javan Dave MD [Staff Provider] - Disposition: Routine/Home Disposition Time: 07:00 Condition: STABLE Additional Instructions: FOLLOW UP WITH DR. FABIAN YOU MAY NEED FURTHER IMAGING OF YOUR LOWER BACK follow up with Dr Dave if pain persists in one week return to the ED with any worsening or concerning symptoms ANTONIO OLIVEIRA, thank you for letting us take care of you today. Your provider was Ne Carrillo MD and you were treated for BACK INJURY. The emergency medical care you received today was directed at your acute symptoms. If you were prescribed any medication, please fill it and take as directed. It may take several days for your symptoms to resolve. Return to the Emergency Department if your symptoms worsen, do not improve, or if you have any other problems. Please contact your doctor or call one of the physicians/clinics you have been referred to that are listed on the Patient Visit Information form that is included in your discharge packet. Bring any paperwork you were given at discharge with you along with any medications you are taking to your follow up visit. Our treatment cannot replace ongoing medical care by a primary care provider outside of the emergency department. Thank you for allowing the [email or web address] team to be part of your care today. If you had an X-Ray or CT scan: A Radiologist will review the ED reading if any change in treatment is needed we will contact you. If you had a blood, urine, or wound culture: It will take several days for the results, if any change in treatment is needed we will contact you. If you had an STI test: It will take 48 hours for the results. Please call after 1 week if you have not heard back. Prescriptions: Cephalexin [Keflex] 500 mg PO BID #14 capsule Cyclobenzaprine [Flexeril] 5 mg PO TID PRN #10 tab PRN Reason: Muscle Spasm Lidocaine 5% [Lidoderm] 1 ea TD DAILY PRN #10 patch PRN Reason: Pain Instructions: Low Back Pain (DC), Vertebral Compression Fracture (DC) Forms: [employer] (Djiboutian) Print Language: MICRONESIAN
[2018-05-25 07:45] VITALS: BP 136/80; PULSE 75; TEMP 98.8
--- NOTE | 2018-05-25 10:11 | RAD ---
Date of service: 05/25/2018 PROCEDURE: Radiographs of the Lumbar Spine. HISTORY: Status post fall COMPARISON: No prior. FINDINGS: BONES: There is a chronic anterior wedge compression fracture of the T12 segment. Remaining lumbar vertebral bodies exhibit relatively normal stature. There is a moderate levoscoliosis centered at the L2-L3 level however vertebral bodies otherwise exhibit normal alignment. Facets normally aligned. There small posterior osteophyte formation. The facets also hypertrophic L5-S1 through the L2-L3 levels in decreasing order of severity. DISC SPACES: Multilevel degenerative spondylosis. Changes include varying degrees of disc space narrowing, endplate eburnation with anterolateral the OTHER FINDINGS: Metallic clips right upper quadrant of the abdomen consistent with prior cholecystectomy. Extensive vascular calcifications of the aortic arch and iliac arteries IMPRESSION: No acute lumbar fracture several chronic anterior wedge compression fracture T12 segment is present. . Multilevel degenerative spondylosis most notably affecting the L2-L3 level. There is a levoscoliosis centered at this level as well.
[2018-05-25 20:21] VITALS: O2SAT 98
== END 2018-05-25 07:44 | disposition home or self-care (01) ==
LOC: H.ER 03:45
DX: S39.012A Strain of muscle, fascia and tendon of lower back, initial encounter (principal); W01.0XXA Fall on same level from slipping, tripping and stumbling without subsequent striking against object, initial encounter; Y92.89 Other specified places as the place of occurrence of the external cause; E78.00 Pure hypercholesterolemia, unspecified; I11.0 Hypertensive heart disease with heart failure; I50.9 Heart failure, unspecified; Z79.82 Long term (current) use of aspirin